=== PATIENT | female | born 2005 | race Caucasian/White ===

== ENCOUNTER 2023-12-01 12:35 | Emergency (ER) | payer OTHER, SELFPAY ==
[2023-12-01 12:38] VITALS: BP 126/76
--- NOTE | 2023-12-01 13:03 | ED.GENMED ---
History of Present Illness
General
Chief Complaint: Fainting/Passed Out
Source: patient and family
Exam Limitations: none
Time Seen by Provider: 12/01/23 12:44
Travel History
Have you had any contact with someone who has COVID-19?: No
Do you have any symptoms of coronavirus? Fever > 100 degrees, chills, cough, shortness of breath, sore throat, loss of taste or smell, muscle aches, or headache?: No
History of Present Illness
History of Present Illness:
38-year-old female with a syncopal episode at a nail salon. Became lightheaded in the chair. Mildly diaphoretic. Brief syncope. No preceding chest pain shortness of breath palpitations heart racing etc. Patient gets daily headaches that have
been fully worked up in the past by neurology. No unusual headaches today. No neurologic symptoms. No visual issues. Feels much better at this time. Patient did have some nausea and mild upper abdominal pain yesterday. Some nausea today
however no abdominal pain
Past History
Past History
ED Past Medical History: Other (Daily migraines)
Review of Systems
Review of Systems
All Other Systems: Not applicable
Constitutional: Denies fever
Respiratory: Reports no symptoms
Cardiac: Denies chest pain or palpitations
Phy Exam
Physical Exam
Physical Exam:
GENERAL: Alert and oriented in no apparent distress
EYE: Orbits normal.
NECK: Supple, no carotid bruit
CARDIAC: Regular rate and rhythm without any obvious murmurs.
LUNGS: Clear breath sounds,normal
ABDOMEN: Soft, without focal tenderness or distention
NEUROLOGICAL: Alert and oriented , grossly non-focal
SKIN: Warm and dry, no rash or lesion, no discoloration, skin intact.
MUSCULOSKELETAL: No edema,no deformity.Good color
PSYCH: Normal and appropriate interaction.
Course
Orders/Labs/Results
Orders:
Orders
12/01/23 12:39
EKG [Electrocardiogram (*1)] Urgent
Reason for Study: Syncope
EKG- Treatment ONCE
12/01/23 13:01
Cardiac Monitoring- Treatment ONCE
IV Insert/Care/Rem.- Treatment PRN
0.9% Sodium Chloride 1000 ml [Nss] 1,000 ml IV BOLUS
Test Result ONCE
Pulse Ox/cont/shift [RESP] Stat
Quantity: 1
12/01/23 13:04
Beta Hcg Serum Qualitative Screen [HCG, Serum Qualitative Screen] Urgent
Complete Blood Count/With Diff Urgent
Comprehensive Metabolic Panel Urgent
D-Dimer Urgent
Lipase Urgent
Troponin I Urgent
Abnormal Lab Results
12/01/23
13:04
Absolute Monos (auto) 0.7 H 10^3/uL
(0.1-0.6)
Lymphocytes % 20.4 L %
(20.5-51.1)
Sodium 134 L mmol/L
(135-145)
12/01/23 13:04
12/01/23 13:04
Vital Signs
Initial and Last Documented VS:
Initial Vital Signs
Temp Pulse Resp BP Pulse Ox
98.0 F 102 17 126/76 97
12/01/23 12:38 12/01/23 12:38 12/01/23 12:38 12/01/23 12:38 12/01/23 12:38
Last Documented Vital Signs
Temp Pulse Resp BP Pulse Ox
98.0 F 95 13 113/68 100
12/01/23 12:38 12/01/23 15:00 12/01/23 15:00 12/01/23 15:00 12/01/23 15:00
*Pulse Oximetry
Patient hypoxic: no
*EKG
Interpreted by ED Provider?: Yes
Interpretation: normal
Comparison EKG: no comparison EKG present
Heart Rate: 86
Rate: normal
Rhythm: sinus
Electra: normal axis
Interval: normal interval
QRS Pattern: normal QRS
Ischemia: no ischemia
*Critical Care Note
Total Time (30-74mins, 75-104mins- exclusive of procedures): Not Applicable
Update Note
Update Note:
ED workup unremarkable. No arrhythmias. No EKG findings for increase suspicion for arrhythmia. Patient is describing vasovagal syncope. Discharged to follow-up. Some vague epigastric symptoms. Doubt gallbladder. Will observe and follow-up as
needed
ED Attending Note
-
Portions of this chart may have been created with voice recognition software.� Occasional wrong word or��sound alike� substitutions may have occurred due to the inherent limitations of voice recognition software.
Discharge Plan
Departure
Patient Disposition: Home (Routine Discharge)
Date of Disposition: 12/01/23
Time of Disposition: 14:57
Patient with high blood pressure during this ER visit?: No
Discharge Problem:
Syncope, Nausea
Instructions: Syncope (Fainting) (DC)
Referrals:
UNKNOWN - PT DOES,NOT KNOW [Family Provider] -
Activity Restrictions/Additional Instructions:
Get rechecked with persistent nausea, increasing upper abdominal pain, fever or any other concerning symptoms
Follow-up closely with your primary physician
Interventions
Interventions:
*Risk Screen - Suicide Last Done: 12/01/23 12:48
*General Assessment Last Done: 12/01/23 12:49
*Neglect/Abuse Screening Last Done: 12/01/23 12:48
ED- Fall Risk Assessment Last Done: 12/01/23 15:08
*ED COVID-19 Vaccine History Last Done: 12/01/23 13:16
*Nursing Disposition Last Done: 12/01/23 15:08
ED- Cardiac Assessment Last Done: 12/01/23 13:15
ED- Neurological Assessment Last Done: 12/01/23 12:48
Discharge Date and Time
Discharge Date/Time: 12/01/23 15:11
[2023-12-01] MEDS: NSS 1000 IV (13:09)
[2023-12-01 13:10] VITALS: BMI 22.0
[2023-12-01 13:22] LABS: % Basophils 0.3 % (0-2); % Eosinophils 0.1 % (0-6); % Immature Granulocytes 0.3 % (0-0.5); % Lymphocytes 20.4 % (20.5-51.1); % Neutrophils 69.9 % (42.2-75.2); Absolute Lymphocytes 1.5 10^3/uL (1.2-3.4); Absolute Monocytes 0.7 10^3/uL (0.1-0.6); Absolute Neutrophils 5.1 10^3/uL (1.4-6.5); Hematocrit 37.9 % (37.0-47.0); Hemoglobin 13.1 g/dL (12.0-16.0); Mean Corp Hgb Conc. 34.6 g/dL (33.0-37.0); Mean Corpuscular Volume 86.7 fL (81.0-99.0); Mean Platelet Volume 9.6 fL (7.4-10.4); Nucleated Red Blood Cells % 0 %; Platelet Count 254 10^3/uL (130-400); Red Blood Cell Count 4.37 10^6/uL (4.20-5.40); Red Cell Dist. Width 12.1 % (11.5-14.5); White Blood Cell Count 7.3 10^3/uL (4.8-10.8)
[2023-12-01 13:32] LABS: HCG, Serum Qualitative Screen Negative
[2023-12-01 13:36] LABS: ALT (SGPT) 17 U/L (0-35); AST (SGOT) 21 U/L (14-36); Albumin 4.4 g/dl (3.5-5.0); Alkaline Phosphatase 69 U/L (38-126); Blood Urea Nitrogen 15 mg/dl (7-17); Calcium 9.6 mg/dl (8.4-10.2); Carbon Dioxide 25 mmol/L (22-30); Chloride 104 mmol/L (98-107); Estimated Creatinine Clearance 125 ml/min; Glucose 94 mg/dl (70-99); Lipase 60 U/L (23-300); Potassium 4.3 mmol/L (3.5-5.1); Sodium 134 mmol/L (135-145); Total Bilirubin 0.5 mg/dl (0.2-1.3); Total Protein 7.2 g/dl (6.3-8.2); eGFR > 60.00
[2023-12-01 13:37] LABS: D-Dimer 0.27 ug/mlFEU (0.00-0.50)
[2023-12-01 13:47] LABS: Troponin I < 0.012 ng/ml
[2023-12-01 14:04] VITALS: BP 111/64
[2023-12-01 15:00] VITALS: BP 113/68
== END 2023-12-01 15:11 | disposition home or self-care (01) ==
LOC: EMR 12:35
PROVIDERS: EMERGENCY PHYSICIAN Emergency Medicine
DX: R55 Syncope and collapse (principal); R11.0 Nausea; R42 Dizziness and giddiness; R10.10 Upper abdominal pain, unspecified; R61 Generalized hyperhidrosis
CPT/HCPCS: 99284; 96360; 80053; 83690; 84484; 84703; 85025; 85379; 93005